=== PATIENT | female | born 1975 | race Caucasian/White ===

== ENCOUNTER 2021-05-03 13:23 | Emergency (ER) | payer OTHER ==
[~2021-05-03] VITALS: Ht 167.6 cm; Wt 54.4 kg
[~2021-05-03 13:23] MED LIST: BIKTARVY PO; KEPPRA 250 MG250 MG PO; LAMICTAL150 MG PO; RISPERDAL0.5 MG PO; SEROQUEL100 MG PO
[2021-05-03 14:54] LABS: RED BLOOD COUNT 4.12 M/UL (4.00-5.10); WHITE BLOOD COUNT 3.7 K/UL (4.5-11.0)
[2021-05-03] MEDS ORDERED: MACROBID 100 M100 M1 PO (20:38)
== END 2021-05-03 21:17 | disposition home or self-care (01) ==
LOC: ER1 13:23
PROVIDERS: Physician Assistant Medical
DX: U07.1 COVID-19 (principal); Z23 Encounter for immunization; N39.0 Urinary tract infection, site not specified
CPT/HCPCS: 0240U; 71045; 80053; 81001; 85025; 87077; 87086; 87186; 99285; J0696; M0245

== ENCOUNTER 2021-10-18 19:22 | Emergency (ER) | payer OTHER ==
[~2021-10-18 19:22] MED LIST changes: +MACROBID 100 M100 M1 PO
[2021-10-18 22:36] LABS: HEMOGLOBIN 12.6 gm/dl (12.3-15.3); RED BLOOD COUNT 3.8 M/UL (4.00-5.10); WHITE BLOOD COUNT 10.6 K/UL (4.5-11.0)
== END 2021-10-19 01:33 | disposition home or self-care (01) ==
LOC: ER1 19:22
PROVIDERS: Family Medicine
DX: T67.5XXA Heat exhaustion, unspecified, initial encounter (principal); E86.0 Dehydration; Z88.0 Allergy status to penicillin; X30.XXXA Exposure to excessive natural heat, initial encounter
CPT/HCPCS: 80053; 85025; 99284

== ENCOUNTER 2021-11-14 06:57 | Emergency (ER) | payer OTHER ==
[2021-11-14] MEDS ORDERED: ZITHROMAX250 MG PO (09:17)
== END 2021-11-14 09:25 | disposition home or self-care (01) ==
LOC: ER1 06:57
DX: J02.0 Streptococcal pharyngitis (principal); Z88.0 Allergy status to penicillin; Z20.822 Contact with and (suspected) exposure to COVID-19
CPT/HCPCS: 0241U; 87081; 87880; 99283